=== PATIENT | female | born 1990 | race Asian ===

== ENCOUNTER 2024-06-26 07:49 | Outpatient (AMB) | payer MEDICAID, SELFPAY ==
[2024-06-26 08:05] VITALS: BP 120/72; PULSE 80; O2SAT 98; BMI 38.4
--- NOTE | 2024-06-26 08:05 | A.OFFVIS_ITS ---
Vital Signs 06/26/24 08:05 Height 5 ft Weight 196 lb 10.437 oz BMI 38.4 BP 120/72 Blood Pressure Location Lt brachial Position Sitting Pulse 80 Pulse Source Pulse Oximeter Pulse Oximetry (%) 98 Oxygen Delivery Method Room Air Intake Visit Reasons: Sialoadenitis/CM Intake Note: Patient presents today as a new patient referred by PCP for Sialoadenitis. Allergies No Known Allergies Allergy (Verified 06/26/24 08:09) Medication List - Last Reconciled 06/26/24 by Trixie Garcia MD acetaminophen ER 650 mg PO TID bupropion HCl SR 200 mg PO QAM buspirone 15 mg PO TID clonazepam 1 mg PO BEDTIME PRN haloperidol 2 mg PO BID ibuprofen mg PO lurasidone 60 mg PO DAILY norgestimate-ethinyl estradiol 0.18/0.215/0.25 mg-35 mcg (28) (Tri-Estarylla) 1 tab PO DAILY omeprazole 20 mg PO DAILY ondansetron HCl mg PO sennosides (senna) 17.2 mg PO DAILY HPI Comments Details: Patient is a 33-year-old female with depression and anxiety who presents for evaluation of bilateral parotid swelling. Patient states that in September 2023 she noted bilateral swelling to the sides of her face. She met with outside ENT Dr. Isidro Alcantara. She underwent ultrasound of the neck 10/17/2023 showing 9 mm lymph node adjacent to right parotid with fatty hilum no cortical thickening. 6 mm lymph node within the left parotid with fatty hilum no cortical thickening. She then underwent CT scan of the neck with contrast 10/31/2023 at [facility] showing bilateral parotid gland enlargement with no inflammatory changes. No surrounding inflammation or discrete mass. No dilation of the duct. Then additionally underwent blood tests including ESR, Chriss level, SSA, SSB, mumps IgM all with negative findings. She states that this swelling improved over time with massage and sour candies. However the swelling returned in December and then she sought additional evaluation. She subsequently had a ultrasound guided core needle biopsy of the left parotid gland. 01/12/2024. 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 Patient denies rash, shortness of breath, lymphadenopathy, fevers. 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 Does not have any young children. Does not work with young children. Initially from [place] and [place] the [place]. No history of tuberculosis. No family history of autoimmune disease such as sarcoidosis, lupus, thyroid disease. [facility] Medical History (Updated 06/26/24 @ 08:37 by Trixie Garcia MD) Swelling of both parotid glands Astigmatism Bipolar 1 disorder Myopia Obesity Acquired acanthosis nigricans Hearing loss Anxiety Family History (Updated 06/25/24 @ 08:42 by Lindsay Paulino CMA) Father Diabetes CAD (coronary artery disease) Hx of CABG Mother Diabetes Hypertension Review of Systems Const Details: Review of Systems Constitutional: Denies fever, chills, weight loss ENT: Denies vision changes, eye pain or eye redness, dental caries, dry mouth GI: Denies nausea, vomiting, diarrhea, abdominal pain, change in BM Pulm: Denies SOB, GAVIN, hemoptysis, wheezing Cards: Denies chest pain, palpitations Skin: Denies Raynaud's, rash, nail changes, photosensitivity, MANAGER INSIDE: Denies headaches, weakness, paresthesias, recurrent falls MSK: as per HPI All other systems reviewed and are unremarkable except noted above Physical Exam Vital Signs: Last Vital Signs Pulse 80 06/26/24 08:05 BP 120/72 06/26/24 08:05 Pulse Ox 98 06/26/24 08:05 Oxygen Delivery Method Room Air 06/26/24 08:05 BMI result Body Mass Index 38.4 Physical Examination Patient well appearing and in no apparent painful distress Able to rise from chair without support. ?Gait normal. Constitutional Mucous membranes pink and moist patient alert and cooperative HEENT Conjunctiva and sclera clear. ?Pupils equal round and reactive to light. ?No lymphadenopathy. ?Normal dentition. No swelling noted to bilateral parotids. No discharge noted on massage of parotid gland opening in the mouth. Respiratory System Normal respiratory effort and able to speak in complete sentences. ?Clear to auscultation bilaterally. ?No crackles, rales, rhonchi, wheezes heard. Cardiac System Regular rate and rhythm. ?S1 and S2 heard no murmurs. ?Radial pulses intact bilaterally MSK No deformity, swelling, abnormalities noted to bilateral hands. ?No evidence of synovitis. ?Able to move all joints with full range of motion, without limitation. Hands:.??Normal pain-free range of motion without tenderness, swelling, i ncreased warmth or erythema. Able to make a full fist and has a good er registrar strength. Wrists: Normal pain-free range of motion without tenderness, swelling, increased warmth or erythema. Elbows: Full range of motion without pain. No tenderness, weakness, swelling, increased warmth or erythema. Shoulders: Full range of motion without pain. No tenderness, weakness, swelling, increased warmth or erythema. Hips: Full range of motion without pain. Hip bursa:.??No tenderness. Knees:.???Normal pain-free range of motion without tenderness, swelling, increased warmth or erythema.?No effusion or crepitations Ankles:.??Normal pain-free range of motion without tenderness, swelling, increased warmth or erythema. Feet:.??Normal pain-free range of motion without tenderness, swelling, increased warmth or erythema. Skin No rashes Results Reviewed Results Reviewed: Left parotid gland core needle biopsy 01/12/2024 Findings: The core biopsy shows atrophic salivary tissue with scattered areas of fibrosis and florid lymphoplasmacytic inflammation. Immunohistochemical stains show admixed CD3+ T-cells and CD20+ B-cells. CD138 highlights scattered plasma cells which a pair polytypic by in Situ light chain hybridization. IgG is positive in a subset of plasma cells with IgG4 positive in scattered cells (IgG4: IgG<0.4, with <10 IgG4 positive cells/hpf. No definitive organisms seen DANN and Nocardia special stains. Overall findings are nonspecific in this biopsy. CT neck with contrast 10/17/2023 Parotid glands enlarged with hyperenhancement no inflammatory changes. No surrounding inflammation or discrete mass. No dilation of the duct. Normal submandibular glands. Normal ESR, Chriss level, SSA, SSB, mumps IgM Parotid US 10/17/2023 9 mm lymph node adjacent to right parotid with fatty hilum no cortical thickening. 6 mm lymph node with the left parotid with fatty hilum no cortical thickening. Assessment & Plan Assessment & Plan (1) Swelling of both parotid glands: Code(s): R60.0 - Localized edema Category: Medical Plan: #Bilateral parotid swelling Differentials for bilateral parotid swelling include local disease such as parotitis, tumor infiltration or mumps; systemic disease such as sarcoidosis, tuberculosis, Sjogren's syndrome, thyroid disease; drugs such as high estrogen contraceptive pills and thiouracil; sialolithiasis or sialadenosis caused by diabetes, hypothyroidism and alcohol abuse. Based on the patient's history and the biopsy results my top differentials are sarcoidosis and IgG4 related disease. However so far there is nothing to truly confirm either. We will recent blood work including Chriss level and IgG subclasses. We will check CT scan of the chest. Advised patient that if the swelling returns she should contact the office. Contacted Leora Leblanc MD pathologist at [facility] [phone] to discuss the pathology findings Plan I spent 65 minutes reviewing the record and labs, seeing the patient, discussing the treatment plan, contacting pathologist at the [facility] and discussing the case, and documenting in the medical record ? For next visit: * review labs abd CT scan Orders: Orders Comprehensive Met. Panel Today D86.9 - Sarcoidosis, unspecified, R60.0 - Localized edema Erythrocyte Sedimentation Rate Today D86.9 - Sarcoidosis, unspecified, R60.0 - Localized edema Anti Extractable Nuclear Ag Today D86.9 - Sarcoidosis, unspecified, R60.0 - Localized edema CAMERON Reflex Titer and Pattern Today D86.9 - Sarcoidosis, unspecified, R60.0 - Localized edema Free T4 (Free Thyroxine) Today D86.9 - Sarcoidosis, unspecified, R60.0 - Localized edema CT chest wo IV con Today D86.9 - Sarcoidosis, unspecified, R60.0 - Localized edema Immunoglobulin E Today D89.84 - IgG4-related disease Immunoglobulin D Today D89.84 - IgG4-related disease Immunoglobulin A Today D89.84 - IgG4-related disease Complete Blood Count Auto Diff Today D86.9 - Sarcoidosis, unspecified, R60.0 - Localized edema C Reactive Protein Today D86.9 - Sarcoidosis, unspecified, R60.0 - Localized edema Thyroid Stimulating Hormone Today D86.9 - Sarcoidosis, unspecified, R60.0 - Localized edema Angiotensin Converting Enzyme Today D86.9 - Sarcoidosis, unspecified, R60.0 - Localized edema Immunoglobulin G Subclasses Today D89.84 - IgG4-related disease Immunoglobulin G Today D89.84 - IgG4-related disease Hemoglobin A1c Today E11.9 - Type 2 diabetes mellitus without complications Coding Level of Care Code New Pt Level 5 (76330) Diagnoses Swelling of both parotid glands R60.0
== END 2024-06-26 08:51 | disposition home or self-care (01) ==
PROVIDERS: PCP Internal Medicine; Visit Provider Student in an Organized Health Care Education/Training Program
DX: R60.0 Localized edema (principal)
CPT/HCPCS: 99205

== ENCOUNTER 2024-06-26 07:49 | Outpatient (REF) | payer MEDICAID, SELFPAY ==
[2024-06-26 09:31] LABS: MANUAL DIFF FLAG NO
[2024-06-26 10:08] LABS: Basophils Percent Auto 0.5 % (0-2); Eosinophils Absolute Auto 0.6 X10*3/uL (0.0-0.4); Eosinophils Percent Auto 6.9 % (0-4); Hematocrit 36.5 % (37.0-47.0); Hemoglobin 12.3 g/dl (12.0-16.0); Imm Gran Abs Auto 0.03 X10*3/uL (0.00-0.03); Imm Gran Pct Auto 0.3 % (0.0-0.4); Lymphocytes Absolute Auto 1.2 X10*3/uL (1.2-4.9); Lymphocytes Percent Auto 14.5 % (20-40); Mean Corpuscular HGB Conc 33.7 g/dl (31.0-35.0); Mean Corpuscular Volume 86.1 fL (80.0-98.0); Monocytes Absolute Auto 0.7 X10*3/uL (0.1-1.2); Neutrophils Percent Auto 69.8 % (45-73); Platelet Count 247 X10*3/uL (160-400); Red Blood Count 4.24 X10*6/uL (4.20-5.50); Red Cell Distribution Width 12.1 % (11.0-16.0); White Blood Count 8.6 X10*3/uL (4.8-10.8)
[2024-06-26 10:24] LABS: Estimated Average Glucose 103 mg/dL; Hemoglobin A1C 104.6059 umol/L; Hemoglobin A1c % 5.2 % (<6.0); Total Hemoglobin (HGBA1C) 3158.4332 umol/L
[2024-06-26 10:41] LABS: Erythrocyte Sedimentation Rate 34 MM/HR (0-20)
[2024-06-26 10:56] LABS: Alanine Aminotransferase 37 U/L (0-31); Alkaline Phosphatase 74 U/L (39-117); Anion Gap 13 (12-20); Aspartate Amino Transferase 28 U/L (5-31); Bilirubin Total 0.5 mg/dL (0.0-1.0); Blood Urea Nitrogen 12 mg/dL (9-16); C Reactive Protein 0.72 mg/dL (< or = 0.50); Carbon Dioxide 18 mmol/L (22-29); Chloride 111 mmol/L (96-108); Estimated Glomerular Filt Rate 56; Glucose Random 103 mg/dL (60-115); Potassium 3.8 mmol/L (3.3-5.1); Sodium 138 mmol/L (135-145); Total Protein 7.8 g/dL (6.5-8.0)
[2024-06-26 10:59] LABS: Free T4 (Free Thyroxine) 0.98 ng/dL (0.71-1.85); Thyroid Stimulating Hormone 0.41 uIU/mL (0.32-4.0)
[2024-06-28 01:22] LABS: Immunoglobulin A 513 mg/dL (47-310)
[2024-06-28 05:52] LABS: Immunoglobulin E 284 kU/L (<OR=114)
[2024-06-28 12:43] LABS: Immunoglobulin G Subclass 1 786 mg/dL (382-929); Immunoglobulin G Subclass 2 484 mg/dL (241-700); Immunoglobulin G Subclass 3 50 mg/dL (22-178); Immunoglobulin G Subclass 4 125.8 mg/dL (4-86); Immunoglobulin G Total 1473 mg/dL (600-1640)
[2024-06-29 18:28] LABS: SM/Ribonucleoprotein Ab <1.0 NEG AI (<1.0 NEG); Smith Protein <1.0 NEG AI (<1.0 NEG)
[2024-06-30 09:23] LABS: Immunoglobulin D 22 mg/L (<179)
[2024-07-02 22:39] LABS: Angiotensin Converting Enzyme 29.1 U/L (9-67)
[2024-07-04 13:19] LABS: Anti Nuclear Antibody Screen POSITIVE (NEGATIVE)
== END 2024-06-26 07:50 | disposition home or self-care (01) ==
LOC: HO.LAB 07:49
PROVIDERS: PCP Family Medicine; Visit Provider Student in an Organized Health Care Education/Training Program
DX: D86.9 Sarcoidosis, unspecified (principal); R60.0 Localized edema; D89.84 IgG4-related disease; E11.9 Type 2 diabetes mellitus without complications
CPT/HCPCS: 36415; 80053; 82164; 82784; 82785; 83036; 84439; 84443; 85025; 85652; 86038; 86039; 86140; 86235; 99202

== ENCOUNTER 2024-08-17 14:57 | Outpatient (REF) | payer MEDICAID, SELFPAY ==
--- OUTSIDE RECORDS SUMMARY | 2024-08-17 15:00 | XMS_ITS | Data Portability ---
Author Organization [facility] [address] Address [address] [place] [address] Assessment No assessment recorded. Plan of Treatment Reminders Order Date Submit Date Provider Last Modified By Organization Details Last Modified Time Details Appointments None recorded. Lab None recorded. Referral None recorded. Procedures None recorded. Surgeries None recorded. Imaging None recorded. Medication Orders amoxicillin 875 mg tablet 2023 024 [facility][id number], [address] [place], [address], 4 18:09:58 ibuprofen 600 mg tablet 2023 024 [facility][id number], [address] [place], [address], 4 18:09:58 Patient TargetsNo targets recorded. Patient InstructionsNo instructions recorded. Reason for Referral None Reported. Problems Name Problem SNOMED Code Status Onset Date Resolution Date Notes Provider Name and Address Organization Details Recorded Time Anxiety 59216080 Active [facility] 4 18:00:52 Bipolar disorder 63502338 Active [facility] 4 18:00:58 Problem Notes None recorded. Medical Equipment None Reported. Allergies No known drug allergies Medications Name Sig Start Date Stop Date Status Note LastModified by Organization Details LastModified Time benztropine 0.5 mg tablet TAKE 1 TABLET BY MOUTH EVERYDAY AT BEDTIME 03/13 completed Not Available Not Available Not Available senna 8.6 mg tablet TAKE 2 TABLETS BY MOUTH EVERY DAY IN THE EVENING active Not Available Not Available No t Available lithium carbonate ER 300 mg tablet,exte nded release TAKE 4 TABLETS BY MOUTH NIGHTLY. 03/13 completed Not Available Not Available Not Available haloperidol 1 mg tablet TAKE 1 TABLET BY MOUTH EVERY DAY active Not Available Not Available No t Available bupropion HCl SR 100 mg tablet,12 hr sustained-r elease TAKE 1 TABLET EVERY DAY BY ORAL ROUTE IN THE MORNING. active Not Available Not Available No t Available amoxicillin 875 mg tablet Take 1 tablet every 12 hours by oral route for 10 days. 2023 active Not Available Not Available Not Avai lable lorazepam 0.5 mg tablet TAKE 1 TABLET BY MOUTH EVERY DAY NEEDED SEVERE ANXIETY active Not Available Not Available No t Available lorazepam 1 mg tablet TAKE 1 TABLET DAILY NEEDED SEVERE ANXIETY/P ANIC active Not Available Not Available No t Available ibuprofen 600 mg tablet Take 1 tablet 3 times a day by oral route for 14 days. 2023 active Not Available Not Available Not Avai lable haloperidol 2 mg tablet TAKE 2 TABLETS BY MOUTH EVERY DAY AT BEDTIME active Not Available Not Available No t Available buspirone 15 mg tablet TAKE 2 TABLETS BY MOUTH IN THE MORNING AND 1 TABLET AT NIGHT active Not Available Not Available No t Available bupropion HCl SR 200 mg tablet,12 hr sustained-r elease TAKE 1 TABLET BY MOUTH EVERY DAY active Not Available Not Available No t Available quetiapine ER 50 mg tablet,exte nded release 24 hr TAKE 2 TABLETS BY MOUTH EVERY DAY AT BEDTIME active Not Available Not Available No t Available Tri-Estaryl la (28) 0.18 mg(7)/0.215 mg(7)/0.25 mg(7)-35 mcg tablet TAKE 1 TABLET BY MOUTH EVERY DAY active Not Available Not Available No t Available Vitals Date Recorded Body height Body mass index (BMI) Body weight Body temperature Respiratory rate Oxygen saturation Oxygen saturation in Arterial blood by Pulse oximetry Heart rate Systolic blood pressure Diastolic blood pressure Provider Name and Address Organization Details Last Updated DateTime 4 152.4 cm 38.1 kg/m2 09956.5 1 g 98.4 [degF] 18 /min 96 % 96 % 82 /min 122 mm[Hg] 85 mm[Hg] [facility] 4 18:02:25 Social History Question Answer Notes LastModified by Organizat ion Details LastModified Time Tobacco Smoking Status Never Smoker Mary Farideh null, [place] - [facility] 03/13/2024 18:01:15 What Is Your Level Of Alcohol Consumption? None Information not available 03/13/2024 Are You Currently Employed? No Information not available 03/13/2024 Do You Use Any Illicit Or Recreational Drugs? No Information not available 03/13/2024 Do You Or Have You Ever Used Any Other Forms Of Tobacco Or Nicotine? No Information not available 03/13/2024 Sex: Unknown Functional Status None recorded. Mental Status None recorded. Family History Relationship Description Onset Age of this Age Resolved Age Notes LastModified by Organization Details LastModified Time Father No current problems or disability Not available 03/13 18:01:01 Mother No current problems or disability Not available 03/13 18:01:01 Medical History No medical history recorded. Gynecological History Statement/Question Response Date of LMP 03/06/2024 LMP Approximate Obstetrics History GPAL:G 0 P 0 0 0 0 Immunizations Vaccine Type Date Status Note Provider Nam e and Address Organization Details Recorded Time IPV 3 completed Mary Farideh null, PA - [facility] 03/13/2024 17:59:38 IPV 8 completed Mary Farideh null, PA - [facility] 03/13/2024 17:59:38 IPV 3 completed Mary Farideh null, PA - [facility] 03/13/2024 17:59:38 IPV 3 completed Mary Farideh null, PA - [facility] 03/13/2024 17:59:38 IPV 4 completed Mary Farideh null, PA - [facility] 03/13/2024 17:59:38 Influenza, MDCK, quadrivalent, PF 2 completed Mary Farideh null, PA - [facility] 03/13/2024 17:59:38 measles 4 completed Mary Farideh null, PA - [facility] 03/13/2024 17:59:38 MMR 1 completed Mary Farideh null, PA - [facility] 03/13/2024 17:59:38 MMR 4 completed Mary Farideh null, PA - [facility] 03/13/2024 17:59:38 COVID-19, mRNA, LNP-S, PF, 30 mcg/0.3 mL dose 1 completed Mary Farideh null, PA - [facility] 03/13/2024 17:59:38 COVID-19, mRNA, LNP-S, PF, 30 mcg/0.3 mL dose 1 completed Mary Farideh null, PA - [facility] 03/13/2024 17:59:38 COVID-19, mRNA, LNP-S, PF, 30 mcg/0.3 mL dose 1 completed Mary Farideh null, PA - [facility] 03/13/2024 17:59:38 Tdap 4 completed Mary Farideh null, PA - [facility] 03/13/2024 17:59:38 Tdap 1 completed Mary Farideh null, PA - [facility] 03/13/2024 17:59:38 DTP 3 completed Mary Farideh null, PA - [facility] 03/13/2024 17:59:38 DTP 8 completed Mary Farideh null, PA - [facility] 03/13/2024 17:59:38 DTP 3 completed Mary Farideh null, PA - [facility] 03/13/2024 17:59:38 DTP 3 completed Mary Farideh null, PA - [facility] 03/13/2024 17:59:38 DTP 4 completed Mary Farideh null, PA - [facility] 03/13/2024 17:59:38 Hep B, unspecified formulation 3 completed Mary Farideh null, PA - [facility] 03/13/2024 17:59:38 Hep B, unspecified formulation 3 completed Mary Farideh null, PA - [facility] 03/13/2024 17:59:38 Hep B, unspecified formulation 3 completed Mary Farideh null, PA - [facility] 03/13/2024 17:59:38 BCG 3 completed Mary Farideh null, PA - [facility] 03/13/2024 17:59:38 Influenza, split virus, trivalent, PF 3 completed Mary Farideh null, PA - [facility] 03/13/2024 17:59:38 meningococcal MCV4P 1 completed Mary Farideh null, PA - [facility] 03/13/2024 17:59:38 influenza, seasonal, intradermal, preservative free 4 completed Mary Farideh null, PA - [facility] 03/13/2024 17:59:38 influenza, seasonal, intradermal, preservative free 2 completed Mary Farideh null, PA - [facility] 03/13/2024 17:59:38 Influenza, split virus, quadrivalent, PF 6 completed Mary Farideh null, PA - [facility] 03/13/2024 17:59:38 Influenza, split virus, quadrivalent, PF 7 completed Mary Farideh null, PA - [facility] 03/13/2024 17:59:38 Influenza, split virus, quadrivalent, PF 3 completed Mary Farideh null, PA - [facility] 03/13/2024 17:59:38 Influenza, split virus, quadrivalent, PF 8 completed Mary Farideh null, PA - [facility] 03/13/2024 17:59:38 Influenza, split virus, quadrivalent, PF 9 completed Mary Farideh null, PA - [facility] 03/13/2024 17:59:38 Influenza, split virus, quadrivalent, PF 3 completed Mayr Farideh null, PA - [facility] 03/13/2024 17:59:38 Influenza, split virus, quadrivalent, PF 0 completed Mary Farideh null, PA - [facility] 03/13/2024 17:59:38 Past Encounters Encounter ID Performer Location Encounter Start Date Encounter Closed Date Diagnosis/Indication Diagnosis SNOMED-CT Code Diagnosis ICD10 Code [id number] [facility] [address] 08/09/2019 11:45:50 08/09/2019 13:20:33 [id number] [facility] [id number] [place] [address] 03/13/2024 17:53:23 03/13/2024 18:10:58 Infection of tooth 397954219 K04.7 Health Concerns Section Related Observation LastModified by Organization Detai ls LastModified Time None Recorded Concern Status LastModified by Organization Details LastModified Time None Recorded Advance Directives Directive None Recorded Payers Encounter Date Sequence Insurance Name Policy Number Policy Franklin Covered Member ID Franklin Member ID Guarantor Name 03/13/2024 1 [facility] [place] [id number] [place] Notes Date Note Type Note Provider Name and Address Organization Details Recorded Time 03/13/2024 text/html 33 y/o female here with pain to a lower left wisdom tooth for some time. Has an cody with dentist, but it's at the end of March [facility] [address] [place], [address], PA [facility] 03/13/2024 18:14:59 OBGyn Episode No OBEpisode recorded.
== END 2024-08-17 14:58 | disposition home or self-care (01) ==
LOC: HO.CT 14:57
PROVIDERS: PCP Family Medicine; Visit Provider Student in an Organized Health Care Education/Training Program
DX: D86.9 Sarcoidosis, unspecified (principal); R60.0 Localized edema
CPT/HCPCS: 71250

== ENCOUNTER → 2024-08-17 14:59 | Outpatient (BNV) | payer MEDICAID, SELFPAY | PROVIDERS: PCP Family Medicine; Visit Provider Radiology Diagnostic Radiology | DX: J98.11 Atelectasis (principal) | CPT/HCPCS: 71250 ==

== ENCOUNTER 2024-09-13 07:39 | Outpatient (AMB) | payer MEDICAID, SELFPAY ==
--- OUTSIDE RECORDS SUMMARY | 2024-09-13 07:42 | XMS_ITS | Data Portability ---
Author Organization [facility]ardo [address] Address [address] [place] [address] Assessment No assessment recorded. Plan of Treatment Reminders Order Date Submit Date Provider Last Modified By Organization Details Last Modified Time Details Appointments None recorded. Lab None recorded. Referral None recorded. Procedures None recorded. Surgeries None recorded. Imaging None recorded. Medication Orders amoxicillin 875 mg tablet 2023 024 [id number], [address] [place], [address], 4 18:09:58 ibuprofen 600 mg tablet 2023 024 [id number], [address] [place], [address], 4 18:09:58 Patient TargetsNo targets recorded. Patient InstructionsNo instructions recorded. Reason for Referral None Reported. Problems Name Problem SNOMED Code Status Onset Date Resolution Date Notes Provider Name and Address Organization Details Recorded Time Anxiety 48952251 Active [facility] 4 18:00:52 Bipolar disorder 22458380 Active [facility] 4 18:00:58 Problem [...] t Available Vitals Date Recorded Body height Provider Name an d Address Organization Details Last Updated DateTime 03/13/2024 152.4 cm Mary Gong Fluid-[facility] - [facility] 0 03/13/2024 17:59:28 Date Recorded Body mass index (BMI) Body weight Provider Name and Address Organization Details Last Updated DateTime 03/13/2024 38.1 kg/m2 91089.51 g Mary Gong PA - [facility] 03/13/2024 17:59:32 Date Recorded Body temperature Provider Name a nd Address Organization Details Last Updated DateTime 03/13/2024 98.4 [degF] Mary Gong PA - [facility] 03/13/2024 18:02:13 Date Recorded Respiratory rate Provider Name a nd Address Organization Details Last Updated DateTime 03/13/2024 18 /min Mary Gong PA - [facility] 0 03/13/2024 18:02:17 Date Recorded Oxygen saturation Oxygen saturation in Arterial blood by Pulse oximetry Provider Name and Address Organization Details Last Updated DateTime 03/13/2024 96 % 96 % Mary Gong PA - [facility] 03/13/2024 18:02:33 Date Recorded Heart rate Provider Name an d Address Organization Details Last Updated DateTime 03/13/2024 82 /min Mary Gong PA - [facility] 0 03/13/2024 18:02:58 Date Recorded Systolic blood pressure Diastolic blood pressure Provider Name and Address Organization Details Last Updated DateTime 03/13/2024 122 mm[Hg] 85 mm[Hg] Mary Gong PA - [facility] 03/13/2024 18:02:25 Social History Question Answer Notes LastModified by Organizat ion Details LastModified Time Tobacco Smoking Status Never Smoker Mary Gong magui, PA - [facility] 03/13/2024 18:01:15 What [...] [facility] 03/13/2024 17:59:38 Tdap 1 completed Mary Fardieh null, PA - [facility] 03/13/2024 17:59:38 [...] Diagnosis/Indication Diagnosis SNOMED-CT Code Diagnosis ICD10 Code Diagnosis Note [id number] [address] [facility] [address] [place] [address] 08/09/2019 11:45:50 08/09/2019 13:20:33 [id number] [facility] [address] [facility] [address] [place] [address] 03/13/2024 17:53:23 03/13/2024 18:10:58 Infection of tooth 826169358 K04.7 Based on your presentati on and exam, you are being treated for a Dental Infection. I am going to prescribe you and antibiotic to cover this infection. Please be sure to complete the full course of this antibiotic to prevent antibiotic resistance . Antibiotic s will typically take 4-5 days to start to work with symptom improvemen t. The following are my other recommenda tions to help with symptoms and is important for this diagnosis: 1. Take Ibuprofen or Tylenol if you do not have any allergies to these medication s. If you take a blood thinner you should not take NSAIDS like Ibuprofen. These medication will help with the inflammati on in your respirator y tract which should help the cough.2. Half Peroxide/H lupillo Water Rinses3. Make an appointmen t with a dentist - tooth infection will be helped with antibiotic s but they usually just continue to reoccur. The only treatment is really a root canal or tooth extraction .4. Oralgel can help alleviate some of the symptoms - this can be purchased OTC5. Ice is ok to help with symptoms, but do not apply heat. I would be seen again if you develop any of the following symptoms.1 . Fever > 101.02. Stiff neck - where you can't turn your neck3. Trouble swallowing your saliva - drooling4. Swelling of a lymph node in your throat that is painful to touch5. Difficulty breathing6 . Severe Headache7. Significan t facial swelling especially if it move up close to your eye. Thank you for using [facility] today, please feel free to contact our office if you have any questions or concerns. Health Concerns Section Related Observation LastModified by Organization Detai ls LastModified Time None Recorded Concern Status LastModified by Organization Details LastModified Time None Recorded Advance Directives Directive None Recorded Payers Encounter Date Sequence Insurance Name Policy Number Policy Franklin Covered Member ID Franklin Member ID Guarantor Name 03/13/2024 1 [facility] [employer] [place] [id number] [place] Notes Date Note Type Note Provider Name and Address Organization Details Recorded Time 03/13/2024 text/html 33 y/o female here with pain to a lower left wisdom tooth for some time. Has an cody with dentist, but it's at the end of March [facility] [address] [place], [id number], [place] PA - [facility] 03/13/2024 18:14:59 OBGyn Episode No OBEpisode recorded.
--- NOTE | 2024-09-13 07:43 | A.OFFVIS_ITS ---
Vital Signs 09/13/24 07:46 Height 5 ft Weight 197 lb 8.547 oz BMI 38.6 BP 112/70 Blood Pressure Location Lt brachial Position Sitting Respiration 16 Pulse 74 Pulse Source Pulse Oximeter Pulse Oximetry (%) 98 Intake Visit Reasons: FOLLOW UP Intake Note: Patient presents for follow up. Allergies No Known Allergies Allergy (Verified 09/13/24 07:45) HPI Comments Details: Patient is a 33-year-old female with depression and anxiety who presents for follow up of bilateral parotid swelling. Interval History: Patient last seen 06/26/2024 with me establishing care for the evaluation of recurrent bilateral parotid swelling. Since then she has not had any further swelling to her parotids Rheumatologic History: Initial History: Patient states that in September 2023 she noted bilateral swelling to the sides of her face. She met with outside ENT Dr. Isidro Alcantara. She underwent ultrasound of the neck 10/17/2023 showing 9 mm lymph node adjacent to right parotid with fatty hilum no cortical thickening. 6 mm lymph node within the left parotid with fatty hilum no cortical thickening. She then underwent CT scan of the neck with contrast 10/31/2023 at [facility] showing bilateral parotid gland enlargement with no inflammatory changes. No surrounding inflammation or discrete mass. No dilation of the duct. Then additionally underwent blood tests including ESR, Chriss level, SSA, SSB, mumps IgM all with negative findings. She states that this swelling improved over time with massage and sour candies. However the swelling returned in December and then she sought additional evaluation. She subsequently had a ultrasound guided core needle biopsy of the left parotid gland. 01/12/2024. 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 Patient denies rash, shortness of breath, lymphadenopathy, fevers. 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 Does not have any young children. Does not work with young children. Initially from [place] and [place]. No history of tuberculosis. No family history of autoimmune disease such as sarcoidosis, lupus, thyroid disease. Current Rheumatology Medication(s): [facility] Medical History (Updated 06/26/24 @ 08:37 by Trixie Garcia MD) Swelling of both parotid glands Astigmatism Bipolar 1 disorder Myopia Obesity Acquired acanthosis nigricans Hearing loss Anxiety Family History Father Diabetes CAD (coronary artery disease) Hx of CABG Mother Diabetes Hypertension Social History (Updated 09/13/24 @ 07:46 by TIARRA Ly) Household Members: Family Housing: House Alcohol intake: never Patient Tobacco Use Status: Never used Tobacco Review of Systems Const Details: Review of Systems Constitutional: Denies fever, chills, weight loss ENT: Denies vision changes, eye pain or eye redness, dental caries, dry mouth GI: Denies nausea, vomiting, diarrhea, abdominal pain, change in BM Pulm: Denies SOB, GAVIN, hemoptysis, wheezing Cards: Denies chest pain, palpitations Skin: Denies Raynaud's, rash, nail changes, photosensitivity, COMB WINDER: Denies headaches, weakness, paresthesias, recurrent falls MSK: as per HPI All other systems reviewed and are unremarkable except noted above Physical Exam Vital Signs: BMI result Body Mass Index 38.6 Vital signs reviewed Physical Examination CONSTITUITIONAL Patient alert and cooperative. Well appearing and in no apparent painful distress HEENT Conjunctiva and sclera clear. ?Pupils equal round and reactive to light. ?No lymphadenopathy. ? CHEST/RESPIRATORY SYSTEM Normal respiratory effort and able to speak in complete sentences. ?Clear to auscultation bilaterally. ?No crackles, rales, rhonchi, wheezes heard. CARDIAC SYSTEM Regular rate and rhythm. ?S1 and S2 heard no murmurs. ?Radial pulses intact bilaterally MSK Hands: ?Good area intelligence technician strength bilaterally. No deformities noted. ?No synovitis noted to the MCPs, PIPs or DIPs. ?No tenderness to palpation of these joints. Wrists: ?Full range of motion at the wrists without pain. ?No tenderness to palpation or synovitis noted to the wrists. Elbows: Full range of motion without pain. No tenderness, weakness, swelling, increased warmth or erythema. Shoulders: Full range of motion without pain. No tenderness, weakness, swelling, increased warmth or erythema. Hips: Full range of motion without pain. Hip bursa: No tenderness to palpation Knees: ?Full range of motion. ?No tenderness, swelling, increased warmth or erythema.?No effusion or crepitations Ankles: Full range of motion. ?No tenderness, swelling, increased warmth or erythema.? Feet: ?Negative squeeze test. ?No tenderness to palpation or swelling of the MTPs. Tender points:?No tenderness to palpation of the bilateral trapezius, supraspinatus, greater trochanters, anterior costochondral junctions, bilateral gluteal areas, bilateral suboccipital muscle insertions SKIN Skin intact without rashes. Results Reviewed Results Reviewed: Laboratory Tests 06/26/24 09:26 WBC 8.6 RBC 4.24 Hgb 12.3 Hct 36.5 L Plt Count 247 Eos % (Auto) 6.9 H Eos # (Auto) 0.6 H ESR 34 H Sodium 138 Potassium 3.8 Chloride 111 H Carbon Dioxide 18 L BUN 12 Creatinine 1.13 AST 28 ALT 37 H Alkaline Phosphatase 74 C-Reactive Protein 0.72 H Total Protein 7.8 Albumin 4.0 Angiotensin Convert Enz 29.1 IgG Subclass 4 125.8 H IgA 513 H IgE 284 H CAMERON Screen POSITIVE A CAMERON Titer 1:160 H Sm (Luque) Antibody <1.0 NEG SM/RIGGING FOREMAN IgG Antibody <1.0 NEG Awaiting reading of CT scan Assessment & Plan Assessment & Plan (1) Swelling of both parotid glands: Code(s): R60.0 - Localized edema Category: Medical Plan: #Bilateral parotid swelling Differentials for bilateral parotid swelling include local disease such as parotitis, tumor infiltration or mumps; systemic disease such as sarcoidosis, tuberculosis, Sjogren's syndrome, thyroid disease; drugs such as high estrogen contraceptive pills and thiouracil; sialolithiasis or sialadenosis caused by diabetes, hypothyroidism and alcohol abuse. Based on the patient's history and the biopsy results my top differentials were/are sarcoidosis and IgG4 related disease. Significant results are for positive CAMERON 1:160 (DFS), elevated IgG4 2 times upper limit of normal, elevated IgE 2 times upper limit of normal, and eosinophilia. Still awaiting results of the CT scan to see if there is any hilar lymphadenopathy. Overall based on the results there is no definitive cause for her recurrent swelling It is reassuring that both times that the swelling occurred it resolved on its own without steroids or any other medication. I had a long discussion with patient and father who was present with her. At th is time I think the best course forward to do watchful waiting. If there is return of swelling or manifestation of other concerning symptoms she is to contact me at the office. Plan I spent 20 minutes reviewing the record and labs, taking a history, examining the patient, discussing the treatment plan and documenting in the medical record Coding Level of Care Code Est Pt Level 3 (94828) Diagnoses Swelling of both parotid glands R60.0
[2024-09-13 07:46] VITALS: BP 112/70; PULSE 74; RESP 16; O2SAT 98; BMI 38.6
== END 2024-09-13 08:19 | disposition home or self-care (01) ==
PROVIDERS: PCP Family Medicine; Visit Provider Student in an Organized Health Care Education/Training Program
DX: R60.0 Localized edema (principal)
CPT/HCPCS: 99213

== ENCOUNTER → 2024-09-13 07:39 | Outpatient (BNVA) | payer MEDICAID, SELFPAY | PROVIDERS: PCP Family Medicine; Visit Provider Student in an Organized Health Care Education/Training Program | DX: R60.0 Localized edema (principal) | CPT/HCPCS: 99212 ==